=== PATIENT | female | born 1985 | race Caucasian/White ===

== ENCOUNTER 2019-06-12 21:58 | Emergency (ER) | payer MEDICAID ==
[~2019-06-12] VITALS: Ht 152.4 cm; Wt 60.3 kg
[2019-06-12 22:02] VITALS: Ht 152.4 cm; Wt 60.3 kg
[2019-06-12 23:37] VITALS: BP 126/68
== END 2019-06-12 23:37 | disposition home or self-care (01) ==
LOC: ED 21:58
DX: N64.4 Mastodynia (principal)